=== PATIENT | female | born 1945 | race American Indian/Alaskan Native ===

== ENCOUNTER 2017-07-16 01:46 | Emergency (ER) | payer MEDICARE, OTHER ==
[2017-07-16 08:00] VITALS: BP 164/89
[2017-07-16] MEDS ORDERED: MOTRIN PO ONE (08:14)
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
== END 2017-07-16 08:43 | disposition home or self-care (01) ==
LOC: ED 01:46
DX: S16.1XXA Strain of muscle, fascia and tendon at neck level, initial encounter (principal); M79.1 Myalgia; V49.49XA Driver injured in collision with other motor vehicles in traffic accident, initial encounter; Y93.89 Activity, other specified; Y92.89 Other specified places as the place of occurrence of the external cause; Y99.8 Other external cause status